=== PATIENT | male | born 1975 | race Caucasian/White ===

== ENCOUNTER 2017-11-26 18:08 | Emergency (ER) | payer BC ==
[2017-11-26] MEDS ORDERED: NORMAL SALINE 1000 ML 1,000 ML IV ONE (18:55)
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
[2017-11-26 19:25] LABS: ABSOLUTE MONOCYTES (AUTO) 0.2 10^3/uL (0.1-1.4); ABSOLUTE NEUT (AUTO) 7.1 10^3/uL (1.7-8.2); BASOPHILS % (AUTO) 0.4 % (0-2); EOSINOPHILS % (AUTO) 0.1 % (0-6); HEMATOCRIT 46.7 % (37.9-51.0); LYMPHOCYTES % (AUTO) 12.1 % (13-45); MEAN CORPUSCULAR HEMOGLOBIN 30.2 pg (27.0-33.4); MEAN CORPUSCULAR HGB CONC 34.3 g/dL (32.0-36.0); MEAN CORPUSCULAR VOLUME 88 fl (80-97); MONOCYTES % (AUTO) 2.9 % (3-13); PLATELET COUNT 222 10^3/uL (150-450); RED BLOOD COUNT 5.31 10^6/uL (4.35-5.55); RED CELL DISTRIBUTION WIDTH 13.1 % (11.5-14.0); SEGMENTED NEUTROPHILS % (AUTO) 84.5 % (42-78); TOTAL CELLS COUNTED % (AUTO) 100 %; WHITE BLOOD COUNT 8.5 10^3/uL (4.0-10.5)
[2017-11-26 20:22] LABS: ALANINE AMINOTRANSFERASE 94 U/L (21-72); ALBUMIN 4.2 g/dL (3.5-5.0); ALKALINE PHOSPHATASE 59 U/L (38-126); ANION GAP 10 (5-19); ASPARTATE AMINO TRANSFERASE 43 U/L (17-59); BILIRUBIN,DIRECT 0.2 mg/dL (0.0-0.4); BILIRUBIN,TOTAL 0.4 mg/dL (0.2-1.3); BLOOD UREA NITROGEN 24 mg/dL (7-20); CALCIUM 9.9 mg/dL (8.4-10.2); CARBON DIOXIDE 26 mmol/L (22-30); CHLORIDE 106 mmol/L (98-107); GLUCOSE 145 mg/dL (75-110); POTASSIUM 4.2 mmol/L (3.6-5.0); TOTAL PROTEIN 6.7 g/dL (6.3-8.2)
--- NOTE | 2017-11-26 20:54 | RADIOLOGY REPORT (SQ) ---
EXAM DESCRIPTION: CT HEAD WITHOUT COMPLETED DATE/TIME: 11/26/2017 8:27 pm REASON FOR STUDY: facial numbness and headache COMPARISON: None. TECHNIQUE: Axial images acquired through the brain without intravenous contrast. Images reviewed wi th bone, brain and subdural windows. Images stored on PACS. All CT scanners at this facility use dose modulation, iterative reconstruction, and/or weight based d osing when appropriate to reduce radiation dose to as low as reasonably achievable (ALARA). [facility]: Dose Right [facility]: CareDose [facility]: Dose Right [facility]: Teradose 4D [facility]: Smart PowerInbox RADIATION DOSE: CT Rad equipment meets quality standard of care and radiation dose reduction techniq ues were employed. CTDIvol: 64.6 mGy. DLP: 1034 mGy-cm. mGy. LIMITATIONS: None. FINDINGS: VENTRICLES: Normal size and contour. CEREBRUM: No masses. No hemorrhage. No midline shift. No evidence for acute infarction. Normal gra y/white matter differentiation. No areas of low density in the white matter. CEREBELLUM: No masses. No hemorrhage. No alteration of density. No evidence for acute infarction. EXTRAAXIAL SPACES: No fluid collections. No masses. ORBITS AND GLOBE: No intra- or extraconal masses. Normal contour of globe without masses. CALVARIUM: No fracture. PARANASAL SINUSES: No fluid or mucosal thickening. SOFT TISSUES: No mass or hematoma. OTHER: No other significant finding. IMPRESSION: NORMAL BRAIN CT WITHOUT CONTRAST. EVIDENCE OF ACUTE STROKE: No COMMENT: Quality ID # [id number]: Final reports with documentation of one or more dose reduction techniques (e.g., Automated exposure control, adjustment of the mA and/or kV according to patient size, use of iterative reconstruction technique) TECHNICAL DOCUMENTATION: JOB ID: [id number] [employer]- All Rights Reserved Reading location - IP/workstation name: [email or web address] [id number]
[2017-11-26] MEDS ORDERED: PROCHLORPERAZINE EDISYLATE INJ 10 MG/2 ML VIAL IV ONE (21:19)
[2017-11-26] MEDS ORDERED: KETOROLAC TROMETHAMINE INJ/PF 30 MG/1 ML SDV IV ONE (21:29)
--- NOTE | 2017-11-26 21:31 | ER Document Report ---
ED General - General Chief Complaint: Numbness of Face Stated Complaint: NUMBNESS OF FACE Time Seen by Provider: 11/26/17 18:54 Notes: Patient is a 42-year-old male without past medical history who presents with 12 hours of facial numbness and tingling. He reports that he has by lateral tingling and decreased sensation from the nose down. He states that his symptoms are gradually today and have remained unchanged since that time. He states that it is equal on both sides. He denies any additional associated weakness, numbness, confusion, difficulty walking, or changes in vision. Nothing seems to improve or worsen his symptoms. He denies any history of similar symptoms in the past. He has not seen his primary care doctor regarding today's concerns. He has no known risk factors for CVA. He does note that he has had a headache in conjunction with the symptoms. He describes it as a bilateral, mild, constant temporal headache. He states that this did start at the same time as the paresthesias in his face. The headache has remained unchanged since onset. No fever TRAVEL OUTSIDE OF THE [place] IN LAST 30 DAYS: No - Related Data Allergies/Adverse Reactions: morphine [Morphine] Allergy (Verified 08/10/15 17:48) Penicillins Allergy (Verified 08/10/15 17:48) Past Medical History - General Information source: Patient - Social History Smoking Status: Current Every Day Smoker Chew tobacco use (# tins/day): No Frequency of alcohol use: Social Drug Abuse: None Lives with: Spouse/Significant other Family History: Reviewed & Not Pertinent Patient has suicidal ideation: No Patient has homicidal ideation: No Renal/ Medical History: Denies: Hx Peritoneal Dialysis GI Medical History: Reports: Hx Gastroesophageal Reflux Disease Past Surgical History: Reports: Hx Orthopedic Surgery - L shoulder Review of Systems - Review of Systems Notes: Constitutional: Negative for fever. HENT: Negative for sore throat. Eyes: Negative for visual changes. Cardiovascular: Negative for chest pain. Respiratory: Negative for shortness of breath. Gastrointestinal: Negative for abdominal pain, vomiting or diarrhea. Genitourinary: Negative for dysuria. Musculoskeletal: Negative for back pain. Skin: Negative for rash. Neurological: Positive for headache and paresthesias of the face 10 point ROS negative except as marked above and in HPI. Physical Exam - Vital signs Vitals: Temp Pulse Resp BP Pulse Ox 98.1 F 131 H 20 129/78 H 98 11/26/17 18:17 11/26/17 18:17 11/26/17 18:17 11/26/17 18:17 11/26/17 18:17 Interpretation: Tachycardic Notes: PHYSICAL EXAMINATION: GENERAL: Well-appearing, well-nourished and in no acute distress. HEAD: Atraumatic, normocephalic. EYES: Pupils equal round and reactive to light, extraocular movements intact, sclera anicteric, conjunctiva are normal. ENT: nares patent, oropharynx clear without exudates. Moist mucous membranes. NECK: Normal range of motion, supple without lymphadenopathy LUNGS: Breath sounds clear to auscultation bilaterally and equal. No wheezes rales or rhonchi. HEART: Regular rate and rhythm without murmurs ABDOMEN: Soft, nontender, normoactive bowel sounds. No guarding, no rebound. No masses appreciated. EXTREMITIES: Normal range of motion, no pitting or edema. No cyanosis. NEUROLOGICAL: Face symmetric. Tongue protrudes midline. Extraocular motions intact. Pupils are 2 mm and equally reactive. Normal speech, normal gait. 5 out of 5 strength in both the distal and proximal upper and lower extremities bilaterally. Sensation is grossly intact throughout. Finger to nose testing normal. Pronator drift normal. PSYCH: Normal mood, normal affect. SKIN: Warm, Dry, normal turgor, no rashes or lesions noted. Course - Re-evaluation Re-evalutation: 11/26/17 21:31 Patient presents with signs and symptoms most consistent with likely complex migraine headache. He does have paresthesias in the bilateral face which would be inconsistent with a central pathology. He has no additional focal neurologic deficits on examination his sensation is actually intact in the face. NIH stroke scale 0. CT head unremarkable. Labs likewise unremarkable. No symptoms or signs to suggest a Trejo's palsy. Will empirically treat with prochlorperazine to see if this resolves patient's symptoms. 11/26/17 22:47 Patient has had complete resolution of the paresthesias of his face after receiving prochlorperazine. He remains without any focal neurologic deficits. States he feels completely better would like to go home. At this time will discharge with return precautions and follow-up recommendations. Verbal discharge instructions given a the bedside and opportunity for questions given. Medication warnings reviewed. Patient is in agreement with this plan and has verbalized understanding of return precautions and the need for primary care follow-up in the next 24-72 hours. - Vital Signs Vital signs: Temp Pulse Resp BP Pulse Ox 97.6 F 93 15 121/80 97 11/26/17 20:14 11/26/17 22:57 11/26/17 22:57 11/26/17 22:57 11/26/17 22:57 - Laboratory Result Diagrams: 11/26/17 19:05 11/26/17 19:50 Laboratory results interpreted by me: 11/26/17 11/26/17 19:05 19:50 Seg Neutrophils % 84.5 H Lymphocytes % 12.1 L Monocytes % 2.9 L BUN 24 H Glucose 145 H ALT 94 H - Diagnostic Test Radiology reviewed: Image reviewed, Reports reviewed Radiology results interpreted by me: 11/27/17 03:31 CT head: No acute intracranial bleed Chest x-ray: No acute infiltrate - EKG Interpretation by Me Additional EKG results interpreted by me: 11/27/17 03:31 Sinus tachycardia. Nontender. No ST elevations or depressions. QTC is 433. Discharge - Discharge Clinical Impression: Facial numbness Migraine headache Qualifiers: Migraine type: unspecified Status migrainosus presence: with status migrainosus Intractability: not intractable Qualified Code(s): G43.901 - Migraine, unspecified, not intractable, with status migrainosus Condition: Good Disposition: HOME, SELF-CARE Additional Instructions: You were seen today for a migraine headache. Please follow-up with your primary care doctor regarding today's ED visit. Return to emergency department immediately if you develop a headache that gets to its maximum severity within 20 minutes of onset, you pass out, you develop weakness, numbness, changes in your vision, become unable to keep any fluids down for more than 12 hours, or develop a fever greater than 100.4 degrees Fahrenheit. If you develop a similar migraine headache in the future I recommend that you immediately take 600 mg of ibuprofen and 50 mg of Benadryl and go to sleep as quickly as possible. This can often prevent your migraine headache from becoming severe. Referrals: SATHISH BARRAZA MD [Primary Care Provider] - Follow up as needed
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
[2017-11-26 22:58] VITALS: BP 121/80
--- NOTE | 2017-11-27 07:16 | EKG REPORT ---
SEVERITY:- ABNORMAL ECG - SINUS TACHYCARDIA INFERIOR INFARCT, AGE INDETERMINATE : Confirmed by: Ulices Esteban MD 27-Nov-2017 07:14:44
== END 2017-11-26 23:00 | disposition home or self-care (01) ==
LOC: ER 18:08
DX: G43.901 Migraine, unspecified, not intractable, with status migrainosus (principal); R20.0 Anesthesia of skin; R20.2 Paresthesia of skin; R51 Headache; R00.0 Tachycardia, unspecified; F17.200 Nicotine dependence, unspecified, uncomplicated; Z88.5 Allergy status to narcotic agent; Z88.0 Allergy status to penicillin
CPT/HCPCS: 93005; 99285; 96361; 96374; 96375; 36415; 85025; 80053; 84484; 71046; 70450; 93010; J1885; J0780; J7030

== ENCOUNTER 2020-03-23 10:54 | Emergency (ER) | payer BC ==
[2020-03-23] MEDS ORDERED: LORAZEPAM INJ 2 MG/1 ML VIAL IV ONE (11:02)
[2020-03-23] MEDS ORDERED: FENTANYL CITRATE INJ/PF 100 MCG/2 ML AMPUL IV ONE (11:02)
[2020-03-23] MEDS ORDERED: ASPIRIN 81 MG TABLET, CHEWABLE PO ONE (11:03)
[2020-03-23 11:08] LABS: ABSOLUTE EOSINOPHILS # (AUTO) 0.1 10^3/uL (0.0-0.6); ABSOLUTE LYMPHOCYTES (AUTO) 2.7 10^3/uL (0.5-4.7); ABSOLUTE MONOCYTES (AUTO) 0.5 10^3/uL (0.1-1.4); BASOPHILS % (AUTO) 0.4 % (0-2); EOSINOPHILS % (AUTO) 1.3 % (0-6); HEMATOCRIT 48.1 % (37.9-51.0); HEMOGLOBIN 16.8 g/dL (13.5-17.0); LYMPHOCYTES % (AUTO) 32.1 % (13-45); MEAN CORPUSCULAR HEMOGLOBIN 31.1 pg (27.0-33.4); MEAN CORPUSCULAR HGB CONC 34.9 g/dL (32.0-36.0); MEAN CORPUSCULAR VOLUME 89 fl (80-97); MONOCYTES % (AUTO) 6.4 % (3-13); PLATELET COUNT 174 10^3/uL (150-450); RED CELL DISTRIBUTION WIDTH 13.4 % (11.5-14.0); SEGMENTED NEUTROPHILS % (AUTO) 59.8 % (42-78); TOTAL CELLS COUNTED % (AUTO) 100 %; WHITE BLOOD COUNT 8.4 10^3/uL (4.0-10.5)
--- NOTE | 2020-03-23 11:09 | ER Document Report ---
ED General - General Chief Complaint: Chest Pain Stated Complaint: CHEST PAIN Time Seen by Provider: 03/23/20 11:01 Primary Care Provider: DELMY KASPER MD [ACTIVE STAFF] - Follow up as needed Notes: 44-year-old man presents with a history of brought down to the emergency department from nuclear stress testing because of severe chest pain. Patient has been having intermittent exertional chest pain and dyspnea. 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 Currently began having chest pain after first phases of a stress test. He rates the pain 10/10 no radiation of the pain into the neck or arms. Patient is having severe chest pain and moaning groaning in pain at the time of arrival. He describes a substernal, sharp, stabbing pain with associated tingling in the fingers. TRAVEL OUTSIDE OF THE [place] IN LAST 30 DAYS: No - Related Data Allergies/Adverse Reactions: morphine [Morphine] Allergy (Verified 03/23/20 11:11) Penicillins Allergy (Verified 03/23/20 11:11) Past Medical History - Social History Smoking Status: Current Every Day Smoker Family History: Reviewed & Not Pertinent Renal/ Medical History: Denies: Hx Peritoneal Dialysis GI Medical History: Reports: Hx Gastroesophageal Reflux Disease Past Surgical History: Reports: Hx Orthopedic Surgery - L shoulder Review of Systems - Review of Systems Notes: Constitutional: Negative for fever. HENT: Negative for sore throat. Eyes: Negative for visual changes. Cardiovascular: + Chest pain Respiratory: Negative for shortness of breath. Gastrointestinal: Negative for abdominal pain, vomiting or diarrhea. Genitourinary: Negative for dysuria. Musculoskeletal: Negative for back pain. Skin: Negative for rash. Neurological: Negative for headaches, weakness or numbness. 10 point ROS negative except as marked above and in HPI. Physical Exam - Vital signs Vitals: Resp 18 03/23/20 10:56 - Notes Notes: PHYSICAL EXAMINATION: Physical Exam: General: Well-nourished well-developed 44-year-old man in marked distress secondary to chest pain. HEENT: NC/AT, pupils equal round and reactive to light, MM moist,nares clear, oropharynx clear, airway patent Neck: supple, no adenopathy, no masses. Good range of motion Lungs: Clear to A&P no wheezes, rales, or rhonchi CVS: Regular rate and rhythm no murmur gallop or rub Abdomen: Soft, active, nontender, no masses, no hepatosplenomegaly Ext: No edema, clubbing or cyanosis. Neuro: Alert and responsive, moving all 4 extremities on command, cranial nerves intact, no focal findings Skin: Intact no open lesions, no rash PSYCH: Normal mood, normal affect. Course - Re-evaluation Re-evalutation: 03/23/20 13:32 The patient was taken back to the cardiac stress area and pictures were done. Dr. Jackson cardiology notes that the patient has both anterior and apical wall defect and poor motion. It is felt that the patient would benefit from being transferred to a tertiary care center, Dr. Kasper, cardiology assist in that process. I went in to talk with the patient, notes that he is still having chest pain. A heparin drip and nitroglycerin drip are ordered in the emergency department. Dr. Kasper has contacted cardiology at [facility] and has made arrangements for a transfer. - Vital Signs Vital signs: Temp Pulse Resp BP Pulse Ox 25 H 121/73 96 03/23/20 16:16 03/23/20 16:16 03/23/20 16:16 - Laboratory Result Diagrams: 03/23/20 10:59 03/23/20 10:59 Laboratory results interpreted by me: 03/23/20 10:59 Chloride 108 H BUN 22 H ALT 83 H Creatine Kinase 42 L - Diagnostic Test Radiology reviewed: Reports reviewed - EKG Interpretation by [place] EKG shows normal: Sinus rhythm, [place], Intervals, QRS Complexes, ST-T Waves - Acute ST or T wave abnormalities, no ischemic findings. Rate: Normal - Rate 84 Rhythm: Other - Question of a physiologic Q wave. When compared to previous EKG there are: No significant change - Compared to EKG from 11/26/2017, no significant EKG changes. Critical Care Note - Critical Care Note Total time excluding time spent on procedures (mins): 50 - Critical care time spent obtaining history from patient or surrogate, discussions with consultants, development of treatment plan with patient or surrogate, evaluation of patient's response to treatment, examination of patient, ordering and performing treatments and interventions, ordering and review of laboratory studies, re- evaluation of patient's condition, ordering and review of radiographic studies and review of old charts Discharge - Discharge Clinical Impression: Chest pain, Acute coronary syndrome Condition: Good Disposition: [facility] Referrals: DELMY KASPER MD [ACTIVE STAFF] - Follow up as needed
[2020-03-23] MEDS ORDERED: NITROGLYCERIN 0.4 MG/TAB 25 TAB/BOTTLE SL PRN (11:21)
[2020-03-23 11:33] LABS: ALBUMIN 4.9 g/dL (3.5-5.0); ALKALINE PHOSPHATASE 54 U/L (38-126); ANION GAP 10 (5-19); ASPARTATE AMINO TRANSFERASE 43 U/L (17-59); BILIRUBIN,TOTAL 0.6 mg/dL (0.2-1.3); BLOOD UREA NITROGEN 22 mg/dL (7-20); CARBON DIOXIDE 22 mmol/L (22-30); CHLORIDE 108 mmol/L (98-107); CREATINE KINASE 42 U/L (55-170); GLUCOSE 90 mg/dL (75-110); POTASSIUM 4.5 mmol/L (3.6-5.0); TOTAL PROTEIN 7.9 g/dL (6.3-8.2)
[2020-03-23 11:45] LABS: CREATINE KINASE MB 0.55 ng/mL (<4.55)
[2020-03-23 11:48] LABS: TROPONIN I < 0.012 ng/mL
[2020-03-23] MEDS ORDERED: HEPARIN SOD (PORCINE) 1,000 UNIT/ML 10 ML VIAL IV ONE ×2 (13:24→16:00)
[2020-03-23] MEDS ORDERED: HEPARIN SODIUM,PORCINE/D5W 25,000 UNIT/250 ML RTUINJ IV PRN (13:24)
[2020-03-23] MEDS ORDERED: NITROGLYCERIN/D5W 50 MG/250 ML RTUINJ IV PRN (13:25)
[2020-03-23] MEDS ORDERED: HEPARIN SOD (PORCINE) 1,000 UNIT/ML 10 ML VIAL ONE (15:32)
[2020-03-23] MEDS ORDERED: ACETAMINOPHEN 325 MG TABLET PO ONE (16:04)
[2020-03-23] MEDS ORDERED: HYDROCODONE/ACETAMINOPHEN 5-325 MG TABLET PO ONE (18:18)
[2020-03-23 18:59] VITALS: BP 113/77
--- NOTE | 2020-03-23 21:04 | EKG REPORT ---
SEVERITY:- ABNORMAL ECG - SINUS RHYTHM LEFT ATRIAL ABNORMALITY BORDERLINE INFERIOR Q WAVES : Confirmed by: Jake Liu MD 23-Mar-2020 21:03:35
== END 2020-03-23 18:59 | disposition short-term general hospital (02) ==
LOC: ER 10:54
DX: R07.9 Chest pain, unspecified (principal); I24.9 Acute ischemic heart disease, unspecified; R06.00 Dyspnea, unspecified; F17.200 Nicotine dependence, unspecified, uncomplicated; Z88.6 Allergy status to analgesic agent; Z88.0 Allergy status to penicillin
CPT/HCPCS: 93005; 96376; 99291; 96375; 96365; 96366; 96368; 36415; 82553; 82550; 85025; 80053; 84484; 93010; J1644 ×2; J3010; J2060; J3490

== ENCOUNTER → 2020-03-23 | Outpatient (CLI) | payer BC ==
[~2020-03-23] MED LIST: REGADENOSON INJ 0.4 MG/5 ML DISP.SYRIN IV ONE
--- NOTE | 2020-03-23 13:51 | DRAGON STRESS TEST REPORT ---
Pharmacological nuclear stress test Date: March 23, 2020 Referring physician: Jake Liu MD Performing physician: Jake Liu MD Indication: Chest pain Clinical history 44-year-old male with medical history significant for nicotine dependence with exertional chest pain and dyspnea. He has strong family history of premature coronary artery disease. Procedure The patient presented to the stress lab. Initially rest images were obtained according to standard protocol after the injection of 12 millicurie technetium 99m sestamibi. Subsequently the patient underwent pharmacological stress utilizing 0.4 mg of regadenoson intravenously. The patient's EKG and vital signs were monitored throughout the procedure. Subsequently patient was injected with with 34.7 millicuries of technetium 99m sestamibi. While the patient was waiting to go under the camera he developed severe chest pain and had to be moved to the emergency room. Over there an EKG showed no significant changes and after initiation of therapy with nitroglycerin and narcotics and benzodiazepines symptoms improved dramatically. Later on stress images were obtained according to standard protocol. EKG showed sinus rhythm at 87 beats per minute. The patient's stress EKG did not show any evidence for myocardial ischemia. There were no arrhythmias observed. Raw as well as processed rest and stress images were reviewed. There was mild gut uptake which did not interfere with the study. The rest and stress images show medium size, mildly intense reversible defect in the mid to distal anterior wall and LV apex. There is mild hypokinesis of the distal anterior wall and apex. The calculated ejection fraction is 56%. The TID ratio is 1.04. Conclusion The stress EKG is negative for myocardial ischemia Medium sized mid to distal anterior wall and apical reversible defect suggestive of myocardial ischemia. There is mild hypokinesis of the distal anterior wall and apex The gated left ventricular ejection fraction is 56 %. We have arranged for the patient to be transferred to [place] for cardiac catheterization. [facility]
== END ==
LOC: RAD 07:03
PROVIDERS: ATTEND Internal Medicine
DX: R07.9 Chest pain, unspecified (principal); R06.00 Dyspnea, unspecified; F17.200 Nicotine dependence, unspecified, uncomplicated
CPT/HCPCS: 93017; 78452; A9500; J2785; Q9969